=== PATIENT | male | born 1950 | race Caucasian/White ===

== ENCOUNTER 2017-07-19 19:07 | Emergency (ER) | payer MEDICARE, OTHER ==
[~2017-07-19] VITALS: Ht 170.2 cm; Wt 100.0 kg
[2017-07-19 19:22] VITALS: BP 222/96; PULSE 86; RESP 18; TEMP 100.1; O2SAT 99
[2017-07-19] MEDS ORDERED: LORazepam 2 MG TAB PO PRN (19:45)
[2017-07-19] MEDS ORDERED: LORazepam 1 MG TAB PO PRN (19:45)
[2017-07-19] MEDS ORDERED: ACETAMINOPHEN 325 MG TAB PO PRN (19:45)
[2017-07-19] MEDS ORDERED: LORazepam 2 MG/ML VIAL IV PUSH PRN ×4 (19:45)
[2017-07-19] MEDS ORDERED: FLUMAZENIL 0.5 MG/5 ML VIAL IV PUSH PRN (19:45)
[2017-07-19] MEDS ORDERED: ONDANSETRON ODT 4 MG TAB PO PRN (19:45)
[2017-07-19] MEDS ORDERED: SODIUM CHLORIDE 0.9% FLUSH 10 ML FLUSH IV FLUSH PRN (20:00)
[2017-07-19 20:04] VITALS: BP 158/75; PULSE 84; RESP 18; O2SAT 99
--- NOTE | 2017-07-19 20:06 | PD ---
HPI Chief Complaint: Psychiatric Symptoms Time Seen by Provider: 20:02 Travel History International Travel<30 days: No Contact w/Intl Traveler<30days: No Traveled to known affect area: No History of Present Illness HPI 67-year-old male that presents to the ED for evaluation of a BA. Drinking daily. He suffers from depression and PTSD and takes no medications for this. Per patient he has been drinking daily because having flashbacks from the service that he had when he was younger. Per patient he drinks daily to try to forget. Per patient he does have a history of high blood pressure and diabetes and cholesterol. He takes medications for this but unclear if he is compliant. History is a little bit limited from the patient as patient himself is intoxicated and smells heavily of alcohol. Denies any other drug abuse. States feeling suicidal and states that he wants help. Otherwise he cannot really give me much history other than his intoxicated. He denies any homicidal ideation. PFSH Social History Alcohol Use: Yes Tobacco Use: No Substance Use: No Allergies-Medications (Allergen,Severity, Reaction): Coded Allergies: gemfibrozil (Unverified Allergy, Mild, 07/19/17) Review of Systems ROS Limitations: Intoxication Except as stated in HPI: all other systems reviewed are Neg Physical Exam Exam Limitations: Intoxication Narrative GENERAL: SKIN: Warm and dry. HEAD: Atraumatic. Normocephalic. EYES: Pupils equal and round. No scleral icterus. No injection or drainage. ENT: No nasal bleeding or discharge. Mucous membranes pink and moist. Tongue is midline. No uvula deviation. NECK: Trachea midline. No JVD. CARDIOVASCULAR: Regular rate and rhythm. No murmurs, S3, S4. RESPIRATORY: No accessory muscle use. Clear to auscultation. Breath sounds equal bilaterally. GASTROINTESTINAL: Abdomen soft, non-tender, nondistended. Hepatic and splenic margins not palpable. MUSCULOSKELETAL: Extremities without clubbing, cyanosis, or edema. No obvious deformities. Full range of motion of the upper and upper extremities bilaterally. 2+ pulses bilaterally. NEUROLOGICAL: Awake and alert. No obvious cranial nerve deficits. Motor grossly within normal limits. Five out of 5 muscle strength in the arms and legs. Normal speech. PSYCHIATRIC: Appropriate mood and affect; insight and judgment normal. Data Data Last Documented VS Vital Signs Date Time Temp Pulse Resp B/P (MAP) Pulse Ox O2 Delivery O2 Flow Rate FiO2 07/19/17 19:22 100.1 86 18 222/96 (138) 99 Room Air Orders Orders Complete Blood Count With Diff (07/19/17 19:29) Comprehensive Metabolic Panel (07/19/17 19:29) Thyroid Stimulating Hormone (07/19/17 19:29) Urinalysis - C+S If Indicated (07/19/17 19:29) Psych Screen (07/19/17 19:29) Drug Screen, Random Urine (07/19/17 19:29) Alcohol (Ethanol) (07/19/17 19:29) Salicylates (Aspirin) (07/19/17 19:29) Tylenol (Acetaminophen) (07/19/17 19:29) Alcohol Withdrawal Asmt-Ciwa ONCE (07/19/17 19:44) Ondansetron Odt (Zofran Odt) (07/19/17 19:45) Acetaminophen (Tylenol) (07/19/17 19:45) Flumazenil Inj (Romazicon Inj) (07/19/17 19:45) Lorazepam (Ativan) (07/19/17 19:45) Lorazepam Inj (Ativan Inj) (07/19/17 19:45) Lorazepam (Ativan) (07/19/17 19:45) Lorazepam Inj (Ativan Inj) (07/19/17 19:45) Lorazepam Inj (Ativan Inj) (07/19/17 19:45) Lorazepam Inj (Ativan Inj) (07/19/17 19:45) Iv Access Insert/Monitor (07/19/17 19:50) Ecg Monitoring (07/19/17 19:50) Oximetry (07/19/17 19:50) Sodium Chloride 0.9% Flush (Ns Flush) (07/19/17 20:00) MDM Medical Decision Making Medical Screen Exam Complete: Yes Emergency Medical Condition: Yes Medical Record Reviewed: Yes Differential Diagnosis Depression versus suicidal ideation versus anxiety versus adjustment disorder versus mood disorder versus bipolar disorder versus schizophrenia versus paranoid disorder versus psychosis versus substance abuse versus alcohol abuse versus alcohol induced psychosis versus homicidality addition versus cutting versus personality disorder Narrative Course 67-year-old male that presents to the ED for evaluation of psych. Patient was properly examined and was found to have signs and symptoms consistent with psychiatric illness. No sign of acute medical distress. Patient does appear to be somewhat hypertensive as well as intoxicated. Cipro was ordered. Labs were ordered. Patient will be medically cleared pending labs. Diagnosis Primary Impression: PTSD (post-traumatic stress disorder) Additional Impression: Alcohol intoxication Qualified Codes: F10.920 - Alcohol use, unspecified with intoxication, uncomplicated Antonio Rizzo July 19, 2017 20:06
[2017-07-19 20:07] LABS: AUTOMATED NEUTROPHIL # 3.7 TH/MM3 (1.8-7.7); BASOPHIL # 0.1 TH/MM3 (0-0.2); BASOPHIL % 1.1 % (0.0-2.0); EOSINOPHIL # 0.1 TH/MM3 (0-0.4); EOSINOPHIL % 0.9 % (0.0-4.0); HEMATOCRIT 34.6 % (39.0-51.0); LYMPHOCYTE # 1.9 TH/MM3 (1.0-4.8); MEAN CELL VOLUME 91.7 FL (80.0-100.0); MEAN CORPUSCULAR HEMOGLOBIN 31.9 PG (27.0-34.0); MEAN CORPUSCULAR HGB CONC 34.8 % (32.0-36.0); MEAN PLATELET VOLUME 7.6 FL (7.0-11.0); MONO % 9.6 % (0.0-8.0); MONOCYTE # 0.6 TH/MM3 (0-0.9); NEUT % 58.4 % (16.0-70.0); PLATELET COUNT 218 TH/MM3 (150-450); RED BLOOD COUNT 3.77 MIL/MM3 (4.50-5.90); RED CELL DISTRIBUTION WIDTH 14.3 % (11.6-17.2); WHITE BLOOD COUNT 6.3 TH/MM3 (4.0-11.0)
--- NOTE | 2017-07-19 20:09 | PD ---
Physical Exam Date Seen by Provider: July 19, 2017 Time Seen by Provider: 20:08 Narrative For full history and physical examination please see previous providers note. Data Data Last Documented VS Vital Signs Date Time Temp Pulse Resp B/P (MAP) Pulse Ox O2 Delivery O2 Flow Rate FiO2 07/19/17 20:15 98.7 18 99 Room Air 07/19/17 20:04 84 Orders Orders Complete Blood Count With Diff (07/19/17 19:29) Comprehensive Metabolic Panel (07/19/17:29) Thyroid Stimulating Hormone (07/19/17:29) Urinalysis - C+S If Indicated (07/19/17 19:29) Psych Screen (07/19/17:29) Drug Screen, Random Urine (07/19/17:29) Alcohol (Ethanol) (07/19/17:29) Salicylates (Aspirin) (07/19/17 19:29) Tylenol (Acetaminophen) (07/19/17 19:29) Alcohol Withdrawal Asmt-Ciwa ONCE (07/19/17 19:44) Ondansetron Odt (Zofran Odt) (07/19/17 19:45) Acetaminophen (Tylenol) (07/19/17 19:45) Flumazenil Inj (Romazicon Inj) (07/19/17 19:45) Lorazepam (Ativan) (07/19/17 19:45) Lorazepam Inj (Ativan Inj) (07/19/17 19:45) Lorazepam (Ativan) (07/19/17 19:45) Lorazepam Inj (Ativan Inj) (07/19/17 19:45) Lorazepam Inj (Ativan Inj) (07/19/17 19:45) Lorazepam Inj (Ativan Inj) (07/19/17 19:45) Iv Access Insert/Monitor (07/19/17 19:50) Ecg Monitoring (07/19/17 19:50) Oximetry (07/19/17 19:50) Sodium Chloride 0.9% Flush (Ns Flush) (07/19/17 20:00) Sodium Chlor 0.9% 1000 Ml Inj (Ns 1000 M (07/19/17 20:15) Lorazepam Inj (Ativan Inj) (07/19/17 20:30) Sodium Chlor 0.9% 1000 Ml Inj (Ns 1000 M (07/19/17 21:15) Basic Metabolic Panel (Bmp) (07/19/17 22:00) Labs Laboratory Tests Test 07/19/17 19:27 07/19/17 20:45 07/19/17 23:55 White Blood Count 6.3 TH/MM3 Red Blood Count 3.77 MIL/MM3 Hemoglobin 12.0 GM/DL Hematocrit 34.6 % Mean Corpuscular Volume 91.7 FL Mean Corpuscular Hemoglobin 31.9 PG Mean Corpuscular Hemoglobin Concent 34.8 % Red Cell Distribution Width 14.3 % Platelet Count 218 TH/MM3 Mean Platelet Volume 7.6 FL Neutrophils (%) (Auto) 58.4 % Lymphocytes (%) (Auto) 30.0 % Monocytes (%) (Auto) 9.6 % Eosinophils (%) (Auto) 0.9 % Basophils (%) (Auto) 1.1 % Neutrophils # (Auto) 3.7 TH/MM3 Lymphocytes # (Auto) 1.9 TH/MM3 Monocytes # (Auto) 0.6 TH/MM3 Eosinophils # (Auto) 0.1 TH/MM3 Basophils # (Auto) 0.1 TH/MM3 CBC Comment DIFF FINAL Differential Comment Blood Urea Nitrogen 18 MG/DL 16 MG/DL Creatinine 2.06 MG/DL 1.96 MG/DL Random Glucose 183 MG/DL 102 MG/DL Total Protein 8.0 GM/DL Albumin 4.2 GM/DL Calcium Level 9.2 MG/DL 8.1 MG/DL Alkaline Phosphatase 49 U/L Aspartate Amino Transf (AST/SGOT) 54 U/L Alanine Aminotransferase (ALT/SGPT) 37 U/L Total Bilirubin 0.4 MG/DL Sodium Level 143 MEQ/L 146 MEQ/L Potassium Level 3.5 MEQ/L 3.5 MEQ/L Chloride Level 108 MEQ/L 110 MEQ/L Carbon Dioxide Level 25.2 MEQ/L 26.7 MEQ/L Anion Gap 10 MEQ/L 9 MEQ/L Estimat Glomerular Filtration Rate 32 ML/MIN 34 ML/MIN Thyroid Stimulating Hormone 3rd Gen 3.040 uIU/ML Salicylates Level LESS THAN 1.7 MG/DL Acetaminophen Level LESS THAN 2.0 MCG/ML Ethyl Alcohol Level 294 MG/DL Urine Color YELLOW Urine Turbidity CLEAR Urine pH 6.5 Urine Specific [place] 1.011 Urine Protein 300 mg/dL Urine Glucose (UA) NEG mg/dL Urine Ketones NEG mg/dL Urine Occult Blood MOD Urine Nitrite NEG Urine Bilirubin NEG Urine Urobilinogen LESS THAN 2.0 MG/DL Urine Leukocyte Esterase NEG Urine RBC 1 /hpf Urine WBC LESS THAN 1 /hpf Urine Squamous Epithelial Cells 1 /hpf Urine Hyaline Casts 3 /lpf Urine Granular Casts 2 /lpf Urine Mucus FEW /lpf Microscopic Urinalysis Comment CULT NOT INDICATED Urine Opiates Screen NEG Urine Barbiturates Screen NEG Urine Amphetamines Screen NEG Urine Benzodiazepines Screen POS Urine Cocaine Screen NEG Urine Cannabinoids Screen NEG MDM Medical Record Reviewed: Yes Supervised Visit with JUHI: No Interpretation(s) Laboratory Tests Test 07/19/17 19:27 07/19/17 20:45 White Blood Count 6.3 TH/MM3 Red Blood Count 3.77 MIL/MM3 Hemoglobin 12.0 GM/DL Hematocrit 34.6 % Mean Corpuscular Volume 91.7 FL Mean Corpuscular Hemoglobin 31.9 PG Mean Corpuscular Hemoglobin Concent 34.8 % Red Cell Distribution Width 14.3 % Platelet Count 218 TH/MM3 Mean Platelet Volume 7.6 FL Neutrophils (%) (Auto) 58.4 % Lymphocytes (%) (Auto) 30.0 % Monocytes (%) (Auto) 9.6 % Eosinophils (%) (Auto) 0.9 % Basophils (%) (Auto) 1.1 % Neutrophils # (Auto) 3.7 TH/MM3 Lymphocytes # (Auto) 1.9 TH/MM3 Monocytes # (Auto) 0.6 TH/MM3 Eosinophils # (Auto) 0.1 TH/MM3 Basophils # (Auto) 0.1 TH/MM3 CBC Comment DIFF FINAL Differential Comment Blood Urea Nitrogen 18 MG/DL Creatinine 2.06 MG/DL Random Glucose 183 MG/DL Total Protein 8.0 GM/DL Albumin 4.2 GM/DL Calcium Level 9.2 MG/DL Alkaline Phosphatase 49 U/L Aspartate Amino Transf (AST/SGOT) 54 U/L Alanine Aminotransferase (ALT/SGPT) 37 U/L Total Bilirubin 0.4 MG/DL Sodium Level 143 MEQ/L Potassium Level 3.5 MEQ/L Chloride Level 108 MEQ/L Carbon Dioxide Level 25.2 MEQ/L Anion Gap 10 MEQ/L Estimat Glomerular Filtration Rate 32 ML/MIN Thyroid Stimulating Hormone 3rd Gen 3.040 uIU/ML Salicylates Level LESS THAN 1.7 MG/DL Acetaminophen Level LESS THAN 2.0 MCG/ML Ethyl Alcohol Level 294 MG/DL Urine Color YELLOW Urine Turbidity CLEAR Urine pH 6.5 Urine Specific [place] 1.011 Urine Protein 300 mg/dL Urine Glucose (UA) NEG mg/dL Urine Ketones NEG mg/dL Urine Occult Blood MOD Urine Nitrite NEG Urine Bilirubin NEG Urine Urobilinogen LESS THAN 2.0 MG/DL Urine Leukocyte Esterase NEG Urine RBC 1 /hpf Urine WBC LESS THAN 1 /hpf Urine Squamous Epithelial Cells 1 /hpf Urine Hyaline Casts 3 /lpf Urine Granular Casts 2 /lpf Urine Mucus FEW /lpf Microscopic Urinalysis Comment CULT NOT INDICATED Vital Signs Date Time Temp Pulse Resp B/P (MAP) Pulse Ox O2 Delivery O2 Flow Rate FiO2 07/19/17 20:04 84 18 158/75 (102) 99 Room Air 07/19/17 19:22 100.1 86 18 222/96 (138) 99 Room Air Differential Diagnosis Intoxication versus suicidal ideations versus PTSD versus depression versus substance abuse versus other Narrative Course Patient is a 67-year-old male presenting to emerge from under [place] act secondary to making suicidal ideations. 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 Specifically since he was in the [place] War. Apparently patient has access to firearms. Labs and imaging ordered and pending. CIWA protocol initiated. Patient was hypertensive on arrival, vital signs are reassessed when he was brought to [facility], blood pressure has trended down. CBC with no acute findings Chemistry with a creatinine of 2.06, patient was given a liter of IV fluids on arrival, a second liter has been ordered. Will recheck BMP after fluids. Urinalysis is unremarkable Alcohol level is 294 Salicylates and acetaminophen level are unremarkable. Patient was given Ativan IM for agitation not for signs of DTs. CIWA protocol was initiated by previous provider however patient is not exhibiting signs of withdrawal at this time. Patient is medically clear for psychiatric evaluation at this time. Diagnosis Primary Impression: PTSD (post-traumatic stress disorder) Additional Impressions: Alcohol intoxication Qualified Codes: F10.920 - Alcohol use, unspecified with intoxication, uncomplicated Medical clearance for psychiatric admission Condition: Stable Shira Cruz [employer] July 19, 2017 20:09
[2017-07-19] MEDS ORDERED: htn med (20:11)
[2017-07-19] MEDS ORDERED: diabetic med PO (20:14)
[2017-07-19] MEDS ORDERED: cholesterol med PO (20:14)
[2017-07-19 20:15] VITALS: RESP 18; TEMP 98.7; O2SAT 99
[2017-07-19] MEDS ORDERED: SODIUM CHLOR 0.9% 1000 ML INJ 1,000 ML IV ONE ×2 (20:15→21:15)
[2017-07-19 20:23] LABS: ALBUMIN 4.2 GM/DL (3.4-5.0); AST (GOT) 54 U/L (15-37); BICARBONATE 25.2 MEQ/L (21.0-32.0); BLOOD UREA NITROGEN 18 MG/DL (7-18); CALCIUM 9.2 MG/DL (8.5-10.1); CHLORIDE 108 MEQ/L (98-107); CREATININE 2.06 MG/DL (0.60-1.30); GLOMERULAR FILTRATION RATE 32 ML/MIN (>89); GLUCOSE,RANDOM 183 MG/DL (74-106); SODIUM (NA) 143 MEQ/L (136-145)
[2017-07-19 20:24] LABS: ALT (GPT) 37 U/L (12-78)
[2017-07-19] MEDS ORDERED: LORazepam 2 MG/ML VIAL IV PUSH ONE (20:30)
[2017-07-19 20:34] LABS: ALKALINE PHOSPHATASE 49 U/L (45-117); TOTAL BILIRUBIN ADULT 0.4 MG/DL (0.2-1.0)
[2017-07-19 20:44] LABS: ACETAMINOPHEN LESS THAN 2.0 MCG/ML (10.0-30.0)
[2017-07-19 21:12] LABS: BILIRUBIN, URINE NEG (NEG); BLOOD, URINE MOD (NEG); GLUCOSE,URINE NEG (NEG); HYALINE CAST, URINE 3 /lpf (RARE); KETONE, URINE NEG (NEG); MUCUS URINE FEW /lpf (OCC); NITRITE,URINE NEG (NEG); PH, URINE 6.5 (5.0-8.5); SQUAMOUS EPITHELIAL CELL URINE 1 /hpf (0-5); URINE COLOR YELLOW (YELLW/STRAW); URINE LEUKOCYTE ESTERASE NEG (NEG)
[2017-07-20 00:38] LABS: BICARBONATE 26.7 MEQ/L (21.0-32.0); CALCIUM 8.1 MG/DL (8.5-10.1); CREATININE 1.96 MG/DL (0.60-1.30)
[2017-07-20 01:23] VITALS: BP 136/76; PULSE 76; RESP 16; O2SAT 97
[2017-07-20 02:30] VITALS: BP 198/87; PULSE 67; RESP 20; TEMP 97.2; O2SAT 96
[2017-07-20 05:39] VITALS: BP 142/65; PULSE 66; RESP 20
--- NOTE | 2017-07-20 10:54 | PD ---
Physical Exam Date Seen by Provider: July 20, 2017 Time Seen by Provider: 10:52 Narrative 67-year-old male previously medically cleared for psychiatric evaluation, has been seen and evaluated by psychiatric staff and deemed to be psychiatricly stable for discharge at this time. Patient remains medically stable for discharge. Patient is recommended to follow-up with [facility]. Data Data Last Documented VS Vital Signs Date Time Temp Pulse Resp B/P (MAP) Pulse Ox O2 Delivery O2 Flow Rate FiO2 07/20/17 05:39 66 20 142/65 (90) 07/20/17 02:30 97.2 96 Nasal Cannula Orders Orders Complete Blood Count With Diff (07/19/17 19:29) Comprehensive Metabolic Panel (07/19/17 19:29) Thyroid Stimulating Hormone (07/19/17 19:29) Urinalysis - C+S If Indicated (07/19/17 19:29) Psych Screen (07/19/17 19:29) Drug Screen, Random Urine (07/19/17 19:29) Alcohol (Ethanol) (07/19/17 19:29) Salicylates (Aspirin) (07/19/17 19:29) Tylenol (Acetaminophen) (07/19/17 19:29) Alcohol Withdrawal Asmt-Ciwa ONCE (07/19/17 19:44) Ondansetron Odt (Zofran Odt) (07/19/17 19:45) Acetaminophen (Tylenol) (07/19/17 19:45) Flumazenil Inj (Romazicon Inj) (07/19/17 19:45) Lorazepam (Ativan) (07/19/17 19:45) Lorazepam Inj (Ativan Inj) (07/19/17 19:45) Lorazepam (Ativan) (07/19/17 19:45) Lorazepam Inj (Ativan Inj) (07/19/17 19:45) Lorazepam Inj (Ativan Inj) (07/19/17 19:45) Lorazepam Inj (Ativan Inj) (07/19/17 19:45) Iv Access Insert/Monitor (07/19/17 19:50) Ecg Monitoring (07/19/17 19:50) Oximetry (07/19/17 19:50) Sodium Chloride 0.9% Flush (Ns Flush) (07/19/17 20:00) Sodium Chlor 0.9% 1000 Ml Inj (Ns 1000 M (07/19/17 20:15) Lorazepam Inj (Ativan Inj) (07/19/17 20:30) Sodium Chlor 0.9% 1000 Ml Inj (Ns 1000 M (07/19/17 21:15) Basic Metabolic Panel (Bmp) (07/19/17 22:00) Diet Regular Basic (07/20/17 Breakfast) Diet Regular Basic (07/20/17 Lunch) Labs Laboratory Tests Test 07/19/17 19:27 07/19/17 20:45 07/19/17 23:55 White Blood Count 6.3 TH/MM3 Red Blood Count 3.77 MIL/MM3 Hemoglobin 12.0 GM/DL Hematocrit 34.6 % Mean Corpuscular Volume 91.7 FL Mean Corpuscular Hemoglobin 31.9 PG Mean Corpuscular Hemoglobin Concent 34.8 % Red Cell Distribution Width 14.3 % Platelet Count 218 TH/MM3 Mean Platelet Volume 7.6 FL Neutrophils (%) (Auto) 58.4 % Lymphocytes (%) (Auto) 30.0 % Monocytes (%) (Auto) 9.6 % Eosinophils (%) (Auto) 0.9 % Basophils (%) (Auto) 1.1 % Neutrophils # (Auto) 3.7 TH/MM3 Lymphocytes # (Auto) 1.9 TH/MM3 Monocytes # (Auto) 0.6 TH/MM3 Eosinophils # (Auto) 0.1 TH/MM3 Basophils # (Auto) 0.1 TH/MM3 CBC Comment DIFF FINAL Differential Comment Blood Urea Nitrogen 18 MG/DL 16 MG/DL Creatinine 2.06 MG/DL 1.96 MG/DL Random Glucose 183 MG/DL 102 MG/DL Total Protein 8.0 GM/DL Albumin 4.2 GM/DL Calcium Level 9.2 MG/DL 8.1 MG/DL Alkaline Phosphatase 49 U/L Aspartate Amino Transf (AST/SGOT) 54 U/L Alanine Aminotransferase (ALT/SGPT) 37 U/L Total Bilirubin 0.4 MG/DL Sodium Level 143 MEQ/L 146 MEQ/L Potassium Level 3.5 MEQ/L 3.5 MEQ/L Chloride Level 108 MEQ/L 110 MEQ/L Carbon Dioxide Level 25.2 MEQ/L 26.7 MEQ/L Anion Gap 10 MEQ/L 9 MEQ/L Estimat Glomerular Filtration Rate 32 ML/MIN 34 ML/MIN Thyroid Stimulating Hormone 3rd Gen 3.040 uIU/ML Salicylates Level LESS THAN 1.7 MG/DL Acetaminophen Level LESS THAN 2.0 MCG/ML Ethyl Alcohol Level 294 MG/DL Urine Color YELLOW Urine Turbidity CLEAR Urine pH 6.5 Urine Specific [place] 1.011 Urine Protein 300 mg/dL Urine Glucose (UA) NEG mg/dL Urine Ketones NEG mg/dL Urine Occult Blood MOD Urine Nitrite NEG Urine Bilirubin NEG Urine Urobilinogen LESS THAN 2.0 MG/DL Urine Leukocyte Esterase NEG Urine RBC 1 /hpf Urine WBC LESS THAN 1 /hpf Urine Squamous Epithelial Cells 1 /hpf Urine Hyaline Casts 3 /lpf Urine Granular Casts 2 /lpf Urine Mucus FEW /lpf Microscopic Urinalysis Comment CULT NOT INDICATED Urine Opiates Screen NEG Urine Barbiturates Screen NEG Urine Amphetamines Screen NEG Urine Benzodiazepines Screen POS Urine Cocaine Screen NEG Urine Cannabinoids Screen NEG MDM Medical Record Reviewed: Yes Supervised Visit with JUHI: Yes Narrative Course 67-year-old male previously medically cleared for psychiatric evaluation, has been seen and evaluated by psychiatric staff and deemed to be psychiatricly stable for discharge at this time. Patient remains medically stable for discharge. Patient is recommended to follow-up with [facility]. Diagnosis Primary Impression: PTSD (post-traumatic stress disorder) Additional Impressions: Alcohol intoxication Qualified Codes: F10.920 - Alcohol use, unspecified with intoxication, uncomplicated Medical clearance for psychiatric admission [facility] Instructions: General Instructions Disposition: 01 DISCHARGE HOME Condition: Stable Kirk Kee July 20, 2017 10:54
--- NOTE | 2017-07-20 11:13 | PD ---
History of Present Illness Chief Complaint: Psychiatric Symptoms Time Seen by Provider: 10:15 Travel History International Travel<30 Days: No Contact w/Intl Traveler<30days: No Known affected area: No Legal Status Legal Status: Giron Act Giron Act Signed By: Chad Alva Giron Act Comment: 2017 @ 1841 History of Present Illness: History of Present Illness HPI 67-year-old, , male with history of alcohol use disorder and self-reported history of depression and PTSD that presents to the ED for evaluation of a BA. The Giron act alleges that while the patient was intoxicated he grabbed a scissors and makes gestures to his that he needed to get more alcohol. It is also alleged that he has been having more symptoms associated with PTSD while under the influence of alcohol. The patient did not make any attempt at harming himself. He gives a history of binge drinking for the past several years. Reports that during the past week he has been drinking most of the week and attributes to stressors including the of his sister as well as the of a friend in [place]. He has been involved in counseling as well as AA and is looking for treatment in a rehabilitation facility. He believed the police were going to take him to such facility and [place]. EMR is reviewed. Blood alcohol level on arrival was 294. Positive toxicology for benzos. No previous contact with [facility]. Patient was monitor and secure environment and presented no suicidality. He was allowed to sober up in secure environment. Patient is seen this morning. He is clinically sober. He is alert, oriented, engaging and cooperative. His speech is clear, logical and goal directed. He does have some tremors on his upper extremities. There is no evidence of any psychosis, no florin or hypomania. He denies significant symptoms of PTSD and states that he only experiences the symptoms when he is intoxicated. He denies any suicidal or homicidal ideation, intent or plan. No significant symptom of depression is reported or observed. He tells me that his intention was to be taken to a rehab facility in [place] which he has research and is interested in going there. Remainder of psychiatric review of system is negative. PFSH Past Medical History Cardiovascular Problems: Yes High Cholesterol: Yes Chest Pain: Yes Coronary Artery Disease: Yes (triple bypass) Diabetes: Yes Patient Takes Glucophage: No Hypertension: Yes Triglycerides - High: Yes Past Surgical History Other Surgery: Yes (rectal fiscula repair and vasectomy) Psychiatric History Psychiatric History Hx Psychiatric Treatment: No formal psychiatric treatment. Has been seeing a counselor for the past 3 weeks by the name of Rodrigo. No previous suicidal attempts. No history of self-injurious behavior. 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 He has been since 1998 and currently lives with his . Together they have 6 general children. Since his fdc he enjoys going to the gym approximately 5 times per week. Hx Alcohol Use: Yes Hx Tobacco Use: No Hx Substance Use: No Substance Use Type: Alcohol (Patient denies any history of DTs or seizures when he stops drinking.) Hx of Substance Use Treatment: No Family Psychiatric History Negative Allergies-Medications (Allergen,Severity, Reaction): Coded Allergies: gemfibrozil (Unverified Allergy, Mild, 07/19/17) Reported Meds & Prescriptions Reported Meds & Active Scripts Active Reported [cholesterol med] PO DAILY [diabetic med] PO BID [htn med] BID Review of Systems Psychiatric: DENIES: Anxiety, Confusion, Mood changes, Depression, Hallucinations, Agitation, Suicidal Ideation, Homicidal Ideation, Delusions Except as stated in HPI: all other systems reviewed are Neg Mental Status Examination Appearance: Disheveled (Dressed in hospital scrubs) Consciousness: Alert Orientation: x4 Motor Activity: Normal gait Speech: Unremarkable Language: Adequate Fund of Knowledge: Adequate Attention and Concentration: Adequate Memory: Unremarkable Mood: Appropriate Affect: Appropriate Thought Process & Associations: Intact, Logical, Goal directed Thought Content: Appropriate Hallucination Type: None Delusion Type: None Suicidal Ideation: No Suicidal Plan: No Suicidal Intention: No Homicidal Ideation: No Homicidal Plan: No Homicidal Intention: No Insight: Fair Judgment: Adequate MDM Medical Decision Making Medical Record Reviewed: Yes Assessment/Plan 67-year-old, , male with history of alcohol use disorder and self-reported history of depression and PTSD that presents to the ED for evaluation of a BA. The Giron act alleges that while the patient was intoxicated he grabbed a scissors and makes gestures to his that he needed to get more alcohol. It is also alleged that he has been having more symptoms associated with PTSD while under the influence of alcohol. The patient was monitor and secure environment and was allowed to sober up clinically. Once clinically sober the patient denies any suicidal or homicidal ideation, intent or plan. He denies any significant psychiatric symptoms. He states that he wants to be able to go to outpatient treatment and to look into the treatment facility at [facility]. Patient at this time does not meet criteria to remain under the Giron act. He is provided psychoeducation. He will follow up with his outpatient counselor as well as AA. Giron act as lifted. Psychiatric clear for discharge from the ED Orders Orders Complete Blood Count With Diff (07/19/17 19:29) Comprehensive Metabolic Panel (07/19/17 19:29) Thyroid Stimulating Hormone (07/19/17 19:29) Urinalysis - C+S If Indicated (07/19/17 19:29) Psych Screen (07/19/17 19:29) Drug Screen, Random Urine (07/19/17 19:29) Alcohol (Ethanol) (07/19/17 19:29) Salicylates (Aspirin) (07/19/17 19:29) Tylenol (Acetaminophen) (07/19/17 19:29) Alcohol Withdrawal Asmt-Ciwa ONCE (07/19/17 19:44) Ondansetron Odt (Zofran Odt) (07/19/17 19:45) Acetaminophen (Tylenol) (07/19/17 19:45) Flumazenil Inj (Romazicon Inj) (07/19/17 19:45) Lorazepam (Ativan) (07/19/17 19:45) Lorazepam Inj (Ativan Inj) (07/19/17 19:45) Lorazepam (Ativan) (07/19/17 19:45) Lorazepam Inj (Ativan Inj) (07/19/17 19:45) Lorazepam Inj (Ativan Inj) (07/19/17 19:45) Lorazepam Inj (Ativan Inj) (07/19/17 19:45) Iv Access Insert/Monitor (07/19/17 19:50) Ecg Monitoring (07/19/17 19:50) Oximetry (07/19/17 19:50) Sodium Chloride 0.9% Flush (Ns Flush) (07/19/17 20:00) Sodium Chlor 0.9% 1000 Ml Inj (Ns 1000 M (07/19/17 20:15) Lorazepam Inj (Ativan Inj) (07/19/17 20:30) Sodium Chlor 0.9% 1000 Ml Inj (Ns 1000 M (07/19/17 21:15) Basic Metabolic Panel (Bmp) (07/19/17 22:00) Diet Regular Basic (07/20/17 Breakfast) Diet Regular Basic (07/20/17 Lunch) Results Vital Signs Date Time Temp Pulse Resp B/P (MAP) Pulse Ox O2 Delivery O2 Flow Rate FiO2 07/20/17 05:39 66 20 142/65 (90) 07/20/17 02:30 97.2 67 20 198/87 (124) 96 Nasal Cannula 07/20/17 01:23 76 16 136/76 (96) 97 Room Air 07/19/17 20:15 98.7 18 99 Room Air 07/19/17 20:04 84 18 158/75 (102) 99 Room Air 07/19/17 19:22 100.1 86 18 222/96 (138) 99 Room Air Laboratory Tests Test 07/19/17 19:27 07/19/17 20:45 07/19/17 23:55 White Blood Count 6.3 Red Blood Count 3.77 Hemoglobin 12.0 Hematocrit 34.6 Mean Corpuscular Volume 91.7 Mean Corpuscular Hemoglobin 31.9 Mean Corpuscular Hemoglobin Concent 34.8 Red Cell Distribution Width 14.3 Platelet Count 218 Mean Platelet Volume 7.6 Neutrophils (%) (Auto) 58.4 Lymphocytes (%) (Auto) 30.0 Monocytes (%) (Auto) 9.6 Eosinophils (%) (Auto) 0.9 Basophils (%) (Auto) 1.1 Neutrophils # (Auto) 3.7 Lymphocytes # (Auto) 1.9 Monocytes # (Auto) 0.6 Eosinophils # (Auto) 0.1 Basophils # (Auto) 0.1 CBC Comment DIFF FINAL Differential Comment Blood Urea Nitrogen 18 16 Creatinine 2.06 1.96 Random Glucose 183 102 Total Protein 8.0 Albumin 4.2 Calcium Level 9.2 8.1 Alkaline Phosphatase 49 Aspartate Amino Transf (AST/SGOT) 54 Alanine Aminotransferase (ALT/SGPT) 37 Total Bilirubin 0.4 Sodium Level 143 146 Potassium Level 3.5 3.5 Chloride Level 108 110 Carbon Dioxide Level 25.2 26.7 Anion Gap 10 9 Estimat Glomerular Filtration Rate 32 34 Thyroid Stimulating Hormone 3rd Gen 3.040 Salicylates Level LESS THAN 1.7 Acetaminophen Level LESS THAN 2.0 Ethyl Alcohol Level 294 Urine Color YELLOW Urine Turbidity CLEAR Urine pH 6.5 Urine Specific [place] 1.011 Urine Protein 300 Urine Glucose (UA) NEG Urine Ketones NEG Urine Occult Blood MOD Urine Nitrite NEG Urine Bilirubin NEG Urine Urobilinogen LESS THAN 2.0 Urine Leukocyte Esterase NEG Urine RBC 1 Urine WBC LESS THAN 1 Urine Squamous Epithelial Cells 1 Urine Hyaline Casts 3 Urine Granular Casts 2 Urine Mucus FEW Microscopic Urinalysis Comment CULT NOT INDICATED Urine Opiates Screen NEG Urine Barbiturates Screen NEG Urine Amphetamines Screen NEG Urine Benzodiazepines Screen POS Urine Cocaine Screen NEG Urine Cannabinoids Screen NEG Diagnosis Primary Impression: PTSD (post-traumatic stress disorder) Additional Impressions: Alcohol intoxication Medical clearance for psychiatric admission Condition: Stable Problem Qualifiers Additional Impressions: Alcohol intoxication Qualified Codes: F10.920 - Alcohol use, unspecified with intoxication, uncomplicated Eleonora Nayak [facility] July 20, 2017 11:13
[2017-07-20 12:53] VITALS: BP 154/69; TEMP 98.2
== END 2017-07-20 12:54 | disposition home or self-care (01) ==
LOC: NEPD 19:07 → NEPJ 07-20 12:54
DX: F43.10 Post-traumatic stress disorder, unspecified (principal); F10.920 Alcohol use, unspecified with intoxication, uncomplicated; I10 Essential (primary) hypertension; E11.9 Type 2 diabetes mellitus without complications; Z79.899 Other long term (current) drug therapy
CPT/HCPCS: 80053; 80307; 81001; 84443; 85025; 96361; 96374; 99284; J2060; J7030; 80048